=== PATIENT | female | born 1985 | race Caucasian/White ===

== ENCOUNTER 2020-10-19 22:25 | Emergency (ER) | payer OTHER ==
--- NOTE | 2020-10-20 00:37 | ED Physician Documentation ---
PD HPI HEADACHE - History obtained from History obtained from: Patient - History of Present Illness Timing - onset: How many weeks ago (1) Timing - duration: Weeks (1) Timing - details: Gradual onset, Waxing and waning Worst headache ever?: No: Worst headache ever? Location: Global Quality: Throbbing, Aching, Other (pressure feeling) Associated symptoms: Other (started checking BP with it, and noted BP to be 160- 190 systolic and 90-120 diastolic fairly consistently the past 7-10 days. Does not know how longer before that has been elevated.). No: Fever, Stiff neck, Nausea, Vision changes Improved by: Rest Worsened by: No: Light, Noise Contributing factors: Hypertension (previously borderline BP, has not been on any HTN meds in the past.). No: Recent illness, Trauma Similar symptoms before: Has not had sx before Recently seen: Not recently seen (does not have PMD) Review of Systems Constitutional: denies: Fever, Chills Nose: denies: Rhinorrhea / runny nose, Congestion Throat: denies: Sore throat Cardiac: denies: Chest pain / pressure, Palpitations, Pedal edema, Calf pain Respiratory: denies: Cough GI: denies: Abdominal Pain, Nausea, Vomiting, Diarrhea Neurologic: reports: Headache. denies: Focal weakness, Numbness, Near syncope, Confused, Altered mental status, Head injury PD PAST MEDICAL HISTORY - Past Medical History Cardiovascular: None Respiratory: None Neuro: None Endocrine/Autoimmune: None - Present Medications Home Medications: Ambulatory Orders Medication Instructions Recorded Confirmed Citalopram [CeleXA] 10 mg PO DAILY 10/20/20 10/20/20 Losartan [Cozaar] 50 mg PO DAILY #30 tablet 10/20/20 - Allergies Allergies/Adverse Reactions: Allergies Allergy/AdvReac Type Severity Reaction Status Date / Time No Known Drug Allergies Allergy Verified 10/20/20 00:59 - Living Situation Living Situation: reports: Alone Living Arrangement: reports: At home - Social History Does the pt smoke?: No Does the pt drink ETOH?: Yes ETOH Use: Other (occasional) Does the pt have substance abuse?: No PD ED PE NORMAL - Vitals Vital signs reviewed: Yes - General General: Alert and oriented X 3, No acute distress, Well developed/nourished - HEENT HEENT: Pharynx benign - Neck Neck: Supple, no meningeal sign, No adenopathy - Cardiac Cardiac: RRR, No murmur - Respiratory Respiratory: Clear bilaterally - Abdomen Abdomen: Soft, Non tender - Derm Derm: Normal color, Warm and dry - Extremities Extremities: No edema, No calf tenderness / cord - Neuro Neuro: Alert and oriented X 3, No motor deficit, Normal speech Results - Vitals Vitals: Vital Signs - 24 hr 10/20/20 10/20/20 10/20/20 00:19 00:28 02:10 Temperature 36.8 C 36.8 C 36.8 C Heart Rate 98 99 89 Respiratory 24 20 19 Rate Blood Pressure 142/99 H 141/99 H 135/82 H O2 Saturation 98 100 100 Oxygen O2 Source Room air - Labs Labs: Laboratory Tests 10/20/20 10/20/20 10/20/20 00:10 00:10 00:10 WBC 10.5 RBC 5.22 Hgb 12.8 Hct 41.2 MCV 78.9 L MCH 24.5 L MCHC 31.1 L RDW 15.3 H Plt Count 336 MPV 8.2 Neut # (Auto) 6.5 Lymph # (Auto) 3.0 Williams # (Auto) 0.8 Eos # (Auto) 0.2 Baso # (Auto) 0.0 Absolute Nucleated RBC 0.00 Nucleated RBC % 0.0 Sodium 138 Potassium 4.2 Chloride 104 Carbon Dioxide 23 Anion Gap 11.0 BUN 16 Creatinine 0.6 Estimated GFR (MDRD) 114 Glucose 123 H Calcium 9.7 Total Bilirubin 0.5 AST 25 ALT 40 Alkaline Phosphatase 77 Total Protein 7.8 Albumin 3.9 Globulin 3.9 Albumin/Globulin Ratio 1.0 TSH 3.74 PD MEDICAL DECISION MAKING - ED course Complexity details: considered differential (has had some lightheaded/pressure feelings. Noted BP elevated to 160-190 systolic range, but diastolic from 90-120 consistently for the past 7-10 days (the duration she has been taking it). Presume elevated prior to that as well. Reasonable to start lower dose BP med. ), d/w patient Departure - Departure Disposition: 01 Home, Self Care Clinical Impression: Light-headed feeling High blood pressure Qualifiers: Hypertension type: unspecified Qualified Code(s): I10 - Essential (primary) hypertension Condition: Stable Record reviewed to determine appropriate education?: Yes Instructions: ED Hypertension New Begin Tx Follow-Up: [facility] [Provider Group] Prescriptions: Losartan [Cozaar] 50 mg PO DAILY #30 tablet Comments: Your basic blood count and chemistry panel are normal. Your blood pressure readings were high enough to initiate a mild blood pressure medicine daily. Low-salt diet. Some mild regular exercise several times a week. Losartan 50 mg daily for the next month. Follow-up with local primary care clinic for follow-up. Check your blood pressure once daily or twice daily at most over the next week or 2. Hold the blood pressure medicine or take only half if you find your blood pressure too low, such as less than 1 15-1 20 or the bottom number less than 65. Regular activity otherwise. Discharge Date/Time: 10/20/20 02:14
[2020-10-20] MEDS ORDERED: LOSARTAN 50 MG TABLET PO STA (00:58)
[2020-10-20 01:15] LABS: BASOPHILS % (AUTO) 0.3 %; EOSINOPHILS # (AUTO) 0.2 10^3/uL (0.0-0.7); HGB - HEMOGLOBIN 12.8 g/dL (12.0-16.0); LYMPHOCYTES % (AUTO) 28.4 %; MEAN CORPUSCULAR HEMOGLOBIN 24.5 pg (27.0-31.0); MEAN CORPUSCULAR HGB CONC 31.1 g/dL (32.0-36.0); MEAN CORPUSCULAR VOLUME 78.9 fL (81.0-99.0); MEAN PLATELET VOLUME 8.2 fL (7.9-10.8); MONOCYTES # (AUTO) 0.8 10^3/uL (0.0-1.0); MONOCYTES % (AUTO) 7.2 %; NEUTROPHILS # (AUTO) 6.5 10^3/uL (1.5-6.6); NEUTROPHILS % (AUTO) 61.7 %; PLT - PLATELET COUNT 336 10^3/uL (130-450); RED BLOOD COUNT 5.22 10^6/uL (4.20-5.40); RED CELL DISTRIBUTION WIDTH 15.3 % (12.0-15.0); WHITE BLOOD COUNT 10.5 x10^3/uL (4.8-10.8)
[2020-10-20 01:27] LABS: ALBUMIN 3.9 g/dL (3.2-5.5); BILIRUBIN,TOTAL 0.5 mg/dL (0.2-1.0); CALCIUM 9.7 mg/dL (8.5-10.3); CREATININE 0.6 mg/dL (0.4-1.0); TOTAL PROTEIN 7.8 g/dL (6.7-8.2)
[2020-10-20 02:11] VITALS: BP 135/82
== END 2020-10-20 02:14 | disposition home or self-care (01) ==
LOC: ED 22:25
DX: R51.9 Headache, unspecified (principal); R42 Dizziness and giddiness; I10 Essential (primary) hypertension
CPT/HCPCS: 36415; 99282; 99284; A9270; 80053; 84443; 85025

== ENCOUNTER 2021-04-22 18:26 | Outpatient (CLI) | payer OTHER ==
--- NOTE | 2021-04-22 18:54 | XRAY Report ---
PROCEDURE: Toe(s) RT INDICATIONS: TOE PAIN, R TECHNIQUE: 2 views of the third toe(s) acquired. COMPARISON: None FINDINGS: Bones: Linear radiolucency and cortical disruption involving plantar and lateral aspect of third dist al phalangeal base is seen concerning for a subtle nondisplaced fracture. Similar radiolucency involv ing plantar aspect of third middle phalangeal base is also seen. No suspicious bony lesions. Soft tissues: No suspicious soft tissue densities. IMPRESSION: Finding is concerning for nondisplaced fractures involving plantar and lateral aspect of third distal phalangeal base and possibly plantar aspect of third middle phalangeal base, suggest clinical correl ation and follow-up. Reviewed by: Deandre Barrientos MD on 04/22/2021 6:52 PM PDT Approved by: Deandre Barrientos MD on 04/22/2021 6:52 PM PDT Station ID: [id number]
== END 2021-04-22 23:59 | disposition home or self-care (01) ==
LOC: DI.N 18:26
PROVIDERS: ATTEND Emergency Medicine
DX: M79.674 Pain in right toe(s) (principal)